=== PATIENT | male | born 1980 | race Caucasian/White ===

== ENCOUNTER 2020-07-15 16:54 | Emergency (ER) | payer SELFPAY ==
[~2020-07-15] VITALS: Ht 170.2 cm; Wt 125.0 kg
[2020-07-15] MEDS ORDERED: LOSARTAN POTASS50 MG PO (17:28)
[2020-07-15 18:56] VITALS: BP 160/85
--- NOTE | 2020-07-17 08:38 | NUR ---
Patient called Covid results. ADvised patient of negative Covid results. Patient denies any symptoms. Patient states his girlfriend was positive for Covid. Advised patient that his test could be negative for up to 7 days after his last exposure. Advised patient to follow up with PCP.
== END 2020-07-15 18:59 | disposition home or self-care (01) | DRG 951 ==
LOC: ED 16:54
DX: Z20.828 Contact with and (suspected) exposure to other viral communicable diseases (principal); I10 Essential (primary) hypertension; F17.200 Nicotine dependence, unspecified, uncomplicated